=== PATIENT | female | born 1990 | race Caucasian/White ===

== ENCOUNTER 2018-05-04 13:57 | Emergency (ER) | payer SELFPAY ==
[2018-05-04] MEDS: ACETAMINOPHEN 500 MG TAB PO (15:41)
== END 2018-05-04 19:21 | disposition home or self-care (01) ==
LOC: FTE 13:57
DX: O99.512 Diseases of the respiratory system complicating pregnancy, second trimester (principal); R40.2412 Glasgow coma scale score 13-15, at arrival to emergency department; J00 Acute nasopharyngitis [common cold]; Z34.92 Encounter for supervision of normal pregnancy, unspecified, second trimester; Z3A.19 19 weeks gestation of pregnancy
CPT/HCPCS: 76805; 87400; 99284-25

== ENCOUNTER 2018-09-03 16:51 | Emergency (ER) | payer OTHER ==
[2018-09-03] MEDS: IBUPROFEN 600 MG TAB PO (17:21)
== END 2018-09-03 17:44 | disposition home or self-care (01) ==
LOC: E/R 16:51
DX: O90.89 Other complications of the puerperium, not elsewhere classified (principal); G89.18 Other acute postprocedural pain
CPT/HCPCS: 99284-25; Z7502

== ENCOUNTER 2019-02-11 11:52 | Emergency (ER) | payer SELFPAY, OTHER | END 2019-02-11 12:15 | disposition left against medical advice (07) | LOC: E/R 12:15 | DX: Z53.21 Procedure and treatment not carried out due to patient leaving prior to being seen by health care provider (principal) ==